=== PATIENT | male | born 1945 | race Caucasian/White ===

== ENCOUNTER 2019-03-26 14:04 | Emergency (ER) | payer MEDICARE, OTHER ==
--- NOTE | 2019-03-26 14:11 | ERPHSYRPT ---
- History of Present Illness Time Seen by Provider: 03/26/19 14:11 Source: patient, family Exam Limitations: no limitations Physician History: 73 y/o diabetic white male with LVAD jacket in place and sig cardiac hx presents with concern of a blood glucose of 390's at home. pt did start basaglar one week ago in addition to his metformin and trulicity. pt denies sx , he was just concerned and felt he needed evaluation and possible injection of rapid short acting insulin. Timing/Duration: today Severity: mild Associated Symptoms: denies symptoms Allergies/Adverse Reactions: Penicillins Allergy (Mild, Verified 01/17/13 16:14) Hives Home Medications: Aspirin EC 81 mg [Ecotrin 81 mg] 81 mg PO DAILY 01/17/13 [History] Gluc Carolina/Chondro [place] A/Vit C/Mn [Glucosamine Chondroitin Tab] 1 tab PO BID [History] Metformin HCl 1000 mg [Glucophage 1000 MG] 1,000 mg PO BID 01/17/13 [History] Potassium Chloride [Klor-Con 10] 10 meq PO 01/17/13 [History] Hx Influenza Vaccination/Date Given: No Hx Pneumococcal Vaccination/Date Given: No - Review of Systems Constitutional: No Symptoms Eyes: No Symptoms Ears, Nose, & Throat: No Symptoms Respiratory: No Symptoms Cardiac: No Symptoms Abdominal/Gastrointestinal: No Symptoms Genitourinary Symptoms: No Symptoms Musculoskeletal: No Symptoms Skin: No Symptoms Neurological: No Symptoms Psychological: No Symptoms Endocrine: No Symptoms Hematologic/Lymphatic: No Symptoms Immunological/Allergic: No Symptoms All Other Systems: Reviewed and Negative - Past Medical History Pertinent Past Medical History: Yes Neurological History: No Pertinent History ENT History: No Pertinent History Cardiac History: No Pertinent History Respiratory History: No Pertinent History Endocrine Medical History: Diabetes Type II Musculoskeletal History: No Pertinent History GI Medical History: No Pertinent History History: No Pertinent History Psycho-Social History: No Pertinent History Male Reproductive Disorders: No Pertinent History - Past Surgical History Past Surgical History: Yes Neuro Surgical History: No Pertinent History Cardiac: No Pertinent History Respiratory: No Pertinent History Gastrointestinal: Appendectomy Genitourinary: No Pertinent History Musculoskeletal: No Pertinent History Male Surgical History: No Pertinent History Other Surgical History: right shoulder repair - Social History Smoking Status: Current every day smoker How long have you smoked: 47yrs Exposure to second hand smoke: Yes Drug Use: none - Physical Exam General Appearance: no apparent distress, alert, anxiety Eye Exam: PERRL/EOMI, eyes nml inspection Ears, Nose, Throat Exam: normal ENT inspection, moist mucous membranes Neck Exam: normal inspection, non-tender, supple, full range of motion Respiratory Exam: normal breath sounds, lungs clear, airway intact, No chest tenderness, No respiratory distress Cardiovascular Exam: regular rate/rhythm, normal heart sounds, normal peripheral pulses Rectal Exam: not done Back Exam: normal inspection, normal range of motion, No CVA tenderness, No vertebral tenderness Extremity Exam: normal inspection, normal range of motion, pelvis stable Neurologic Exam: alert, oriented x 3, cooperative, 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
[2019-03-26 14:35] VITALS: PULSE 80
== END 2019-03-26 14:49 | disposition home or self-care (01) ==
LOC: ED 14:04
DX: E11.65 Type 2 diabetes mellitus with hyperglycemia (principal); Z79.4 Long term (current) use of insulin; Z79.899 Other long term (current) drug therapy
CPT/HCPCS: 82962; 99283